=== PATIENT | female | born 1985 | race American Indian/Alaskan Native ===

== ENCOUNTER 2019-03-18 01:41 | Emergency (ER) | payer MEDICAID ==
--- NOTE | 2019-03-18 02:29 | XRay Report ---
CHEST 1 VIEW INDICATION / CLINICAL INFORMATION: Chest Pain. COMPARISON: None available. FINDINGS: SUPPORT DEVICES: None. HEART / MEDIASTINUM: No significant abnormality. LUNGS / PLEURA: No significant pulmonary or pleural abnormality. No pneumothorax. ADDITIONAL FINDINGS: No significant additional findings. IMPRESSION: 1. No acute findings. Signer Name: Bettina Kirk MD Signed: 03/18/2019 1:25 AM Workstation Name: [id number]
[2019-03-18 03:02] LABS: HCG Qualitative,Urine Negative (Negative)
[2019-03-18] MEDS ORDERED: DELTASONE PO ONE (06:02)
[2019-03-18] MEDS ORDERED: TYLENOL PO ONE (06:02)
--- NOTE | 2019-03-18 06:34 | Emergency Department Report ---
- General Chief Complaint: Upper Respiratory Infection Stated Complaint: CHEST PAIN, COUGH, DIZZY Time Seen by Provider: 03/18/19 05:30 Source: patient Mode of arrival: Ambulatory Limitations: No Limitations - History of Present Illness Initial Comments: Patient is a 28-year-old female with no past medical history who does not smoke cigarettes presents to the ED with the complaint of acute onset persistent frontal sinus pressure and headache with nasal and sinus congestion, sore throat, dry cough and diffuse body aches for the last 3 days. Patient states that she made aware of the symptoms from her place of work where people have had similar symptoms. Patient denies chest pain, shortness of breath, fever, chills, abdominal pain, dysuria, urinary frequency and urgency, dizziness, change in vision or neck pain. MD Complaint: cough, sore throat, rhinorrhea, nasal congestion, sinus pain -: Sudden, days(s) (3) Severity: severe Severity scale (0 -10): 7 Quality: sharp, aching Consistency: constant Improves With: nothing Worsens With: nothing Context: sick contacts Associated Symptoms: headache, rhinorrhea, nasal congestion, sore throat, cough. denies: fever, chills, myalgias, diaphoresis, stiff neck, chest pain, shortness of breath, abdominal pain, nausea, vomiting, diarrhea, dysuria, right sweats, weight loss, hoarseness Treatments Prior to Arrival: none - Related Data Previous Rx's Medication Instructions Recorded Last Taken Type Cyclobenzaprine [Flexeril] 10 mg PO TID PRN #15 tablet 09/03/16 Unknown Rx Amoxicillin [Trimox CAP] 500 mg PO Q8H #30 capsule 03/18/19 Unknown Rx Benzonatate [Tessalon Perles] 100 mg PO Q8HR #30 capsule 03/18/19 Unknown Rx Ibuprofen [Motrin 800 MG tab] 800 mg PO Q8HR PRN #20 tablet 03/18/19 Unknown Rx methylPREDNISolone [Medrol 4MG 4 mg PO DAILY #21 tab.ds.pk 03/18/19 Unknown Rx DOSEPAK (21 tabs)] Allergies Allergy/AdvReac Type Severity Reaction Status Date / Time No Known Allergies Allergy Unverified 09/03/16 12:50 ED Review of Systems ROS: Stated complaint: CHEST PAIN, COUGH, DIZZY Other details as noted in HPI Comment: All other systems reviewed and negative Constitutional: denies: chills, fever Eyes: denies: eye pain, eye discharge, vision change ENT: throat pain, congestion. denies: ear pain, dental pain, hearing loss Respiratory: cough. denies: shortness of breath, SOB with exertion, SOB at rest, wheezing Cardiovascular: denies: chest pain, palpitations Endocrine: no symptoms reported Gastrointestinal: denies: abdominal pain, nausea, diarrhea Genitourinary: denies: urgency, dysuria, discharge Musculoskeletal: arthralgia, myalgia. denies: back pain, joint swelling Skin: denies: rash, lesions Neurological: headache. denies: weakness, paresthesias Psychiatric: denies: anxiety, depression Hematological/Lymphatic: denies: easy bleeding, easy bruising ED Past Medical Hx - Past Medical History Previous Medical History?: Yes Hx Diabetes: Yes - Surgical History Past Surgical History?: Yes Additional Surgical History: eye right - Social History Smoking Status: Never Smoker Substance Use Type: None - Medications Home Medications: Home Medications Medication Instructions Recorded Confirmed Last Taken Type Cyclobenzaprine [Flexeril] 10 mg PO TID PRN #15 tablet 09/03/16 Unknown Rx Amoxicillin [Trimox CAP] 500 mg PO Q8H #30 capsule 03/18/19 Unknown Rx Benzonatate [Tessalon Perles] 100 mg PO Q8HR #30 capsule 03/18/19 Unknown Rx Ibuprofen [Motrin 800 MG tab] 800 mg PO Q8HR PRN #20 tablet 03/18/19 Unknown Rx methylPREDNISolone [Medrol 4MG 4 mg PO DAILY #21 tab.ds.pk 03/18/19 Unknown Rx DOSEPAK (21 tabs)] ED Physical Exam - General Limitations: No Limitations General appearance: alert, in no apparent distress - Head Head exam: Present: atraumatic, normocephalic, normal inspection - Eye Eye exam: Present: normal appearance, PERRL, EOMI. Absent: scleral icterus, conjunctival injection, nystagmus, periorbital swelling, periorbital tenderness - ENT ENT exam: Present: normal exam, mucous membranes moist, TM's normal bilaterally, normal external ear exam, other (grossly congested nasal passages; frontal sinus tenderness to palpation) - Neck Neck exam: Present: normal inspection, full ROM, lymphadenopathy. Absent: tenderness - Respiratory Respiratory exam: Present: normal lung sounds bilaterally. Absent: respiratory distress, wheezes, chest wall tenderness, accessory muscle use, decreased breath sounds - Cardiovascular Cardiovascular Exam: Present: regular rate, normal rhythm, normal heart sounds. Absent: systolic murmur, diastolic murmur, rubs, gallop - GI/Abdominal GI/Abdominal exam: Present: soft, normal bowel sounds. Absent: tenderness, guarding, hyperactive bowel sounds - Rectal Rectal exam: Present: deferred - Extremities Exam Extremities exam: Present: normal inspection, full ROM, normal capillary refill - Back Exam Back exam: Present: normal inspection, full ROM. Absent: CVA tenderness (L), muscle spasm, paraspinal tenderness - Neurological Exam Neurological exam: Present: alert, oriented X3, CN II-XII intact, normal gait, reflexes normal - Psychiatric Psychiatric exam: Present: normal affect, normal mood - Skin Skin exam: Present: warm, dry, intact, normal color. Absent: rash ED Course Vital Signs 03/18/19 01:45 Temperature 98.7 F Pulse Rate 86 Respiratory 18 Rate Blood Pressure 167/96 O2 Sat by Pulse 99 Oximetry - Reevaluation(s) Reevaluation #1: 03/18/19 06:38 Patient is alert and oriented 3 and is not in distress. Chest x-ray shows no acute cardiopulmonary abnormalities. Patient was treated for pain in the ED and discharged home on medications and advised to follow-up with her primary care physician in 5-7 days for reevaluation. Patient was advised to return to the ED immediately if symptoms get worse. ED Medical Decision Making - Radiology Data Radiology results: report reviewed, image reviewed chest x-ray: No acute cardiopulmonary abnormalities - Medical Decision Making Patient is alert and oriented 3 and is not in distress. Chest x-ray shows no acute cardiopulmonary abnormalities. Patient was treated for pain in the ED and discharged home on medications and advised to follow-up with her primary care physician in 5-7 days for reevaluation. Patient was advised to return to the ED immediately if symptoms get worse. - Differential Diagnosis acute sinusitis; acute bronchitis; acute URI, Flu like symptoms Critical care attestation.: If time is entered above; I have spent that time in minutes in the direct care of this critically ill patient, excluding procedure time. ED Disposition Clinical Impression: Acute upper respiratory infection Acute frontal sinusitis Qualifiers: Recurrence: non-recurrent Qualified Code(s): J01.10 - Acute frontal sinusitis, unspecified Acute bronchitis Qualifiers: Bronchitis organism: unspecified organism Qualified Code(s): J20.9 - Acute bronchitis, unspecified Disposition: DC- TO HOME OR SELFCARE Is pt being admited?: No Does the pt Need Aspirin: No Condition: Stable Instructions: Acute Bronchitis (ED), Upper Respiratory Infection (ED), Sinusitis (ED) Additional Instructions: Take medications with food, drink plenty of fluids and follow up with your primary care physician in 5-7 days for reevaluation. Return to the ED immediately if symptoms get worse. Prescriptions: methylPREDNISolone [Medrol 4MG DOSEPAK (21 tabs)] 4 mg PO DAILY #21 tab.ds.pk Ibuprofen [Motrin 800 MG tab] 800 mg PO Q8HR PRN #20 tablet PRN Reason: Pain Benzonatate [Tessalon Perles] 100 mg PO Q8HR #30 capsule Amoxicillin [Trimox CAP] 500 mg PO Q8H #30 capsule Referrals: [facility] [Outside] - 3-5 Days Forms: Work/School Release Form(ED) Time of Disposition: 06:32 Print Language: SOMALI
[2019-03-18 07:03] VITALS: BP 114/82
== END 2019-03-18 07:04 | disposition home or self-care (01) ==
LOC: ED 01:41
DX: J06.9 Acute upper respiratory infection, unspecified (principal); J01.10 Acute frontal sinusitis, unspecified; J20.9 Acute bronchitis, unspecified; E11.9 Type 2 diabetes mellitus without complications; Z79.1 Long term (current) use of non-steroidal anti-inflammatories (NSAID); Z79.899 Other long term (current) drug therapy
CPT/HCPCS: 71045; 81025; 99284; J7512

== ENCOUNTER 2021-03-07 01:36 | Emergency (ER) | payer MEDICAID ==
[2021-03-07] MEDS ORDERED: FAMOTIDINE 20 MG TAB PO ONE (02:57)
[2021-03-07] MEDS ORDERED: ACETAMINOPHEN 500 MG TAB PO ONE (02:57)
--- NOTE | 2021-03-07 03:00 | Event Note ---
ED Screening Note Date of service: 03/07/21 Time: 02:58 ED Screening Note: Patient is a A0 35-year-old -Central African female with a history of asthma presents to the ED with complaint of acute onset persistent right upper quadrant abdominal pain that radiates to the epigastric and periumbilical area for the last 2 days. Patient also states that she has not had any bowel movement in 4 days. Patient states that the pain is constant, crampy and persistent. Patient denies vaginal bleeding, vaginal discharge, dysuria, urinary frequency and urgency, nausea, vomiting, chest pain or shortness of breath, fever, chills, cough, diarrhea or back pain. This initial assessment/diagnostic orders/clinical plan/treatment(s) is/are subject to change based on patients health status, clinical progression and re- assessment by fellow clinical providers in the ED. Further treatment and workup at subsequent clinical providers discretion. Patient/guardian urged not to elope from the ED as their condition may be serious if not clinically assessed and managed. Initial orders include: CBC, CMP, UA, hCG quant, lipase, gallbladder ultrasound, transvaginal ultrasound and Tylenol
[2021-03-07 03:29] LABS: Basophils % (Auto) 0.5 % (0.0-1.8); Eosinophils # (Auto) 0.1 K/mm3 (0.0-0.4); Eosinophils % (Auto) 1.2 % (0.0-4.3); Lymphocytes % (Auto) 31.8 % (13.4-35.0); Monocytes # (Auto) 0.5 K/mm3 (0.0-0.8); Monocytes % (Auto) 7.7 % (0.0-7.3)
[2021-03-07 03:46] LABS: Bilirubin,Urine NEG (Negative); Blood,Urine NEG (Negative); Color,Urine Yellow (Yellow); Mucus,Urine FEW /HPF; Protein,Urine <15 mg/dL mg/dL (Negative); RBC,Urine < 1.0 /HPF (0.0-6.0); Urobilinogen,Urine < 2.0 mg/dL (<2.0)
[2021-03-07 04:15] LABS: Hematocrit 35.2 % (30.3-42.9); Mean Corpuscular HGB Conc 35 % (30-34); Mean Corpuscular Volume 96 fl (79-97); Platelet Count 233 K/mm3 (140-440); Red Blood Count 3.67 M/mm3 (3.65-5.03); Red Cell Distribution Width 13.3 % (13.2-15.2)
--- NOTE | 2021-03-07 04:20 | Ultrasound Report ---
OB ultrasound INDICATION: Right upper quadrant pain FINDINGS: There is a live intrauterine . Gestational sac measures 37.1 mm measuring 9.0 days . [place]-rump length measures 15.6 mm measuring 8 weeks 0 days. Yolk sac pole appear normal. No free fluid. Small subchorionic bleed is suggested. heart rate 159. Ovaries appear normal. Uteru s measures 13.5 x 6.1 x 9.3 cm. IMPRESSION: 1. Live intrauterine . 2. Small subchorionic bleed. Signer Name: Handy Silvestre MD Signed: 03/07/2021 4:16 AM Workstation Name: [id number]
--- NOTE | 2021-03-07 04:21 | Ultrasound Report ---
Abdominal ultrasound INDICATION: Right upper quadrant pain FINDINGS: Aorta and IVC appear normal. Pancreas appears normal. No gallstones or gallbladder wall thi ckening. Common bile duct measures 2 mm. Right kidney appears normal. Liver appears normal. IMPRESSION: No acute findings. Signer Name: Handy Silvestre MD Signed: 03/07/2021 4:16 AM Workstation Name: [id number]
[2021-03-07 04:43] LABS: Alanine Aminotransferase 13 units/L (7-56); Albumin 4.1 g/dL (3.9-5); Blood Urea Nitrogen 4 mg/dL (7-17); Calcium 9.1 mg/dL (8.4-10.2); Hemolysis Index 4
[2021-03-07 04:51] LABS: BUN/Creatinine Ratio 10
--- NOTE | 2021-03-07 07:20 | Emergency Department Report ---
ED Abdominal Pain HPI - General Chief Complaint: Abdominal Pain Stated Complaint: 8WEEKS PREG, PAIN NEAR NAVAL TO RIGHT SIDE Time Seen by Provider: 03/07/21 06:54 Source: patient Mode of arrival: Ambulatory Limitations: No Limitations - History of Present Illness Initial Comments: Patient is a A0 35-year-old -[place] female with a history of asthma presents to the ED with complaint of acute onset persistent right upper quadrant abdominal pain that radiates to the epigastric and periumbilical area for the last 2 days. Patient also states that she has not had any bowel movement in 4 days. Patient states that the pain is constant, crampy and persistent. Patient denies vaginal bleeding, vaginal discharge, dysuria, urinary frequency and urgency, vomiting, chest pain or shortness of breath, fever, chills, cough, diarrhea or back pain. Has nausea. Nothing aggravate or alleviate symptoms. Last menstrual period January 08, 2021. Currently not in OB care has an appointment sometime this week. Currently being treated for bacterial vaginosis with MetroGel suppositories last treatment is today. MD Complaint: abdominal pain Location: LUQ Migration to: periumbilical Severity scale (0 -10): 4 - Related Data Previous Rx's Medication Instructions Recorded Last Taken Type Cyclobenzaprine [Flexeril] 10 mg PO TID PRN #15 tablet 09/03/16 Unknown Rx Amoxicillin [Trimox CAP] 500 mg PO Q8H #30 capsule 03/18/19 Unknown Rx Benzonatate [Tessalon Perles] 100 mg PO Q8HR #30 capsule 03/18/19 Unknown Rx Ibuprofen [Motrin 800 MG tab] 800 mg PO Q8HR PRN #20 tablet 03/18/19 Unknown Rx methylPREDNISolone [Medrol 4MG 4 mg PO DAILY #21 tab.ds.pk 03/18/19 Unknown Rx DOSEPAK (21 tabs)] cephALEXin [Keflex] 500 mg PO Q6HR #40 capsule 12/06/19 Unknown Rx hydrOXYzine HCL [Atarax] 25 mg PO Q6HR PRN #20 tablet 12/06/19 Unknown Rx predniSONE [Deltasone] 20 mg PO QDAY #5 tab 12/06/19 Unknown Rx polyethylene glycoL 3350 [Miralax 17 gm PO QDAY 4 Days #1 box 03/07/21 Unknown Rx 3350] Allergies Allergy/AdvReac Type Severity Reaction Status Date / Time No Known Allergies Allergy Unverified 09/03/16 12:50 ED Review of Systems ROS: Stated complaint: 8WEEKS PREG, PAIN NEAR NAVAL TO RIGHT SIDE Other details as noted in HPI ED Past Medical Hx - Past Medical History Previous Medical History?: No Hx Diabetes: Yes - Surgical History Past Surgical History?: No Additional Surgical History: eye right - Social History Smoking Status: Never Smoker - Medications Home Medications: Home Medications Medication Instructions Recorded Confirmed Last Taken Type Cyclobenzaprine [Flexeril] 10 mg PO TID PRN #15 tablet 09/03/16 Unknown Rx Amoxicillin [Trimox CAP] 500 mg PO Q8H #30 capsule 03/18/19 Unknown Rx Benzonatate [Tessalon Perles] 100 mg PO Q8HR #30 capsule 03/18/19 Unknown Rx Ibuprofen [Motrin 800 MG tab] 800 mg PO Q8HR PRN #20 tablet 03/18/19 Unknown Rx methylPREDNISolone [Medrol 4MG 4 mg PO DAILY #21 tab.ds.pk 03/18/19 Unknown Rx DOSEPAK (21 tabs)] cephALEXin [Keflex] 500 mg PO Q6HR #40 capsule 12/06/19 Unknown Rx hydrOXYzine HCL [Atarax] 25 mg PO Q6HR PRN #20 tablet 12/06/19 Unknown Rx predniSONE [Deltasone] 20 mg PO QDAY #5 tab 12/06/19 Unknown Rx polyethylene glycoL 3350 [Miralax 17 gm PO QDAY 4 Days #1 box 03/07/21 Unknown Rx 3350] ED Physical Exam - General Limitations: No Limitations General appearance: alert, in no apparent distress - Head Head exam: Present: atraumatic, normocephalic - Eye Eye exam: Present: normal appearance - ENT ENT exam: Present: mucous membranes moist - Neck Neck exam: Present: normal inspection - Respiratory Respiratory exam: Present: normal lung sounds bilaterally. Absent: respiratory distress - Cardiovascular Cardiovascular Exam: Present: regular rate, normal rhythm. Absent: systolic murmur, diastolic murmur, rubs, gallop - GI/Abdominal GI/Abdominal exam: Present: soft, normal bowel sounds. Absent: distended - Extremities Exam Extremities exam: Present: normal inspection, full ROM - Back Exam Back exam: Present: normal inspection, full ROM - Neurological Exam Neurological exam: Present: alert, oriented X3, normal gait - Psychiatric Psychiatric exam: Present: normal affect, normal mood - Skin Skin exam: Present: warm, dry, intact, normal color. Absent: rash ED Course Vital Signs 03/07/21 02:50 Temperature 98.2 F Pulse Rate 79 Respiratory 18 Rate Blood Pressure 124/72 O2 Sat by Pulse 100 Oximetry ED Medical Decision Making - Lab Data Result diagrams: 03/07/21 03:06 03/07/21 03:06 - Radiology Data Radiology results: report reviewed [facility] [address] [place] [address] Ultrasound Report Signed Patient: YANNI VIVAR MR#: [id number] : 1985 Acct:[id number] Age/Sex: 35 / F ADM Date: 03/07/21 Loc: ED Attending Dr: Ordering Physician: GARRY FAIR Date of Service: 03/07/21 Procedure(s): US OB <= 14 weeks fetus Accession Number(s): [id number] cc: GARRY FAIR OB ultrasound INDICATION: Right upper quadrant pain FINDINGS: There is a live intrauterine . Gestational sac measures 37.1 mm measuring 9.0 days. [place]-rump length measures 15.6 mm measuring 8 weeks 0 days. Yolk sac pole appear normal. No free fluid. Small subchorionic bleed is suggested. heart rate 159. Ovaries appear normal. Uterus measures 13.5 x 6.1 x 9.3 cm. IMPRESSION: 1. Live intrauterine . 2. Small subchorionic bleed. Signer Name: Handy Knapp MD Signed: 03/07/2021 4:16 AM Workstation Name: [id number] Transcribed By: ROLY Dictated By: JUN KNAPP MD Electronically Authenticated By: JUN KNAPP MD Signed Date/Time: 03/07/21415 DD/ 4 TD/TT: Print Cancel - Medical Decision Making Patient is a A0 35-year-old -[place] female with a history of asthma presents to the ED with complaint of acute onset persistent right upper quadrant abdominal pain that radiates to the epigastric and periumbilical area for the last 2 days. Patient also states that she has not had any bowel movement in 4 days. Patient states that the pain is constant, crampy and persistent. Patient denies vaginal bleeding, vaginal discharge, dysuria, urinary frequency and urgency, vomiting, chest pain or shortness of breath, fever, chills, cough, diarrhea or back pain. Has nausea. Nothing aggravate or alleviate symptoms. Last menstrual period January 08, 2021. Currently not in OB care has an appointment sometime this week. Currently being treated for bacterial vaginosis with MetroGel suppositories last treatment is today. Labs are stable ultrasound shows a intrauterine gestation of 8 weeks 0 days with a Small subchorionic bleed. Critical care attestation.: If time is entered above; I have spent that time in minutes in the direct care of this critically ill patient, excluding procedure time. ED Disposition Clinical Impression: Constipation Qualifiers: Constipation type: unspecified constipation type Qualified Code(s): K59.00 - Constipation, unspecified Qualifiers: Weeks of gestation: less than 8 weeks Qualified Code(s): Z3A.01 - Less than 8 weeks gestation of Subchorionic hematoma in first trimester Qualifiers: Fetus number: single or unspecified fetus Qualified Code(s): O41.8X10 - Other specified disorders of amniotic fluid and membranes, first trimester, not applicable or unspecified; O46.8X1 - Other antepartum hemorrhage, first trimester Disposition: DC-01 TO HOME OR SELFCARE Is pt being admited?: No Does the pt Need Aspirin: No Condition: Stable Instructions: Abdominal Pain (ED), Constipation, Adult, [id number], Subchorionic Hematoma Additional Instructions: Labs are stable ultrasound shows a 8-week fetus and a small subacromion hematoma. I would like for you to take the MiraLAX once a day for 4 days to see if we can move your bowels. Then you can take it periodically as needed. Is very important for you to follow-up with a [employer] this week. Continue to increase your fluid intake. Tylenol for any pain. Start taking your vitamins. Prescriptions: polyethylene glycoL 3350 [Miralax 3350] 17 gm PO QDAY 4 Days #1 box Referrals: [facility] [Outside] - 3-5 Days Forms: Work/School Release Form(ED)
[2021-03-07] MEDS ORDERED: ACETAMINOPHEN 325 MG TAB PO ONE (07:36)
[2021-03-07 07:44] VITALS: BP 112/77
== END 2021-03-07 07:50 | disposition home or self-care (01) ==
LOC: ED 01:36
DX: O26.891 Other specified pregnancy related conditions, first trimester (principal); K59.00 Constipation, unspecified; O20.8 Other hemorrhage in early pregnancy; E11.9 Type 2 diabetes mellitus without complications; Z98.890 Other specified postprocedural states; Z79.899 Other long term (current) drug therapy; Z3A.08 8 weeks gestation of pregnancy
CPT/HCPCS: 36415; 76705; 76801; 80053; 81001; 83690; 84702; 85025; 99284

== ENCOUNTER 2021-04-11 03:42 | Emergency (ER) | payer MEDICAID | END 2021-04-11 05:31 | disposition left against medical advice (07) | LOC: ED 03:42 | DX: R05 Cough (principal); Z53.21 Procedure and treatment not carried out due to patient leaving prior to being seen by health care provider ==

== ENCOUNTER 2021-07-12 08:56 | Emergency (ER) | payer MEDICAID ==
[2021-07-12] MEDS ORDERED: SODIUM CHLORIDE 0.9% 1000 ML 1,000 ML IV ONE (09:46)
--- NOTE | 2021-07-12 09:51 | Emergency Department Report ---
ED General Adult HPI - General Chief complaint: Vaginal Bleeding Stated complaint: VAGINAL BLEEDING Time Seen by Provider: 07/12/21 09:46 Source: patient Mode of arrival: Stretcher Limitations: No Limitations - History of Present Illness Initial comments: Patient is 35 years old female 5 para 3 with 1 at 13weeks gestation. Patient presented to the ER via EMS from home for evaluation of sudden onset of lower abdominal cramping and vaginal bleeding started this morning. Patient denied any injury or trauma. Patient denied any nausea or vomiting. No fever or chills. - Related Data Allergies Allergy/AdvReac Type Severity Reaction Status Date / Time No Known Allergies Allergy Verified 07/12/21 09:40 ED Review of Systems ROS: Stated complaint: VAGINAL BLEEDING Other details as noted in HPI Comment: All other systems reviewed and negative Constitutional: denies: chills, fever Cardiovascular: denies: chest pain, palpitations Gastrointestinal: abdominal pain. denies: nausea, vomiting, diarrhea, constipation, hematemesis Genitourinary: denies: urgency, dysuria Musculoskeletal: denies: back pain Neurological: denies: headache, weakness, numbness, paresthesias, confusion, abnormal gait ED Past Medical Hx - Past Medical History Previous Medical History?: Yes Hx Diabetes: Yes - Surgical History Past Surgical History?: Yes Additional Surgical History: eye right - Social History Smoking Status: Current Every Day Smoker Substance Use Type: None ED Physical Exam - General Limitations: No Limitations General appearance: alert, in no apparent distress - Head Head exam: Present: atraumatic, normocephalic, normal inspection - Eye Eye exam: Present: normal appearance, PERRL - ENT ENT exam: Present: normal exam, normal orophraynx, mucous membranes moist - Neck Neck exam: Present: normal inspection, full ROM. Absent: tenderness, meningismus - Respiratory Respiratory exam: Present: normal lung sounds bilaterally - Cardiovascular Cardiovascular Exam: Present: regular rate, normal rhythm, normal heart sounds - GI/Abdominal GI/Abdominal exam: Present: soft, normal bowel sounds. Absent: distended, tenderness, guarding, rebound, rigid, organomegaly, mass, bruit, pulsatile mass, hernia - Extremities Exam Extremities exam: Present: normal inspection, full ROM, normal capillary refill. Absent: tenderness - Back Exam Back exam: Present: normal inspection, full ROM. Absent: CVA tenderness (R), CVA tenderness (L) - Neurological Exam Neurological exam: Present: alert, oriented X3, CN II-XII intact, normal gait, reflexes normal. Absent: motor sensory deficit - Psychiatric Psychiatric exam: Present: normal mood - Skin Skin exam: Present: warm, intact, normal color ED Course Vital Signs 07/12/21 07/12/21 07/12/21 09:21 09:48 11:43 Pulse Rate 88 Respiratory 18 Rate Blood Pressure 138/83 120/73 [Left] O2 Sat by Pulse 98 Oximetry 07/12/21 12:46 Pulse Rate 84 Respiratory Rate Blood Pressure 117/73 [Left] O2 Sat by Pulse Oximetry ED Medical Decision Making - Lab Data Result diagrams: 07/12/21 09:53 07/12/21 09:53 - Radiology Data Radiology results: report reviewed - Medical Decision Making Patient is 35 years old female 5 para 3 with 1 at 13weeks gestation. Patient presented to the ER via EMS from home for evaluation of sudden onset of lower abdominal cramping and vaginal bleeding started this morning. Patient denied any injury or trauma. Patient denied any nausea or vomiting. No fever or chills. Patient remained stable in the ER. Patient passed a big clot with the tissues. Patient stated the bleeding stopped now. Labs reviewed and is unremarkable. ultrasound showed no intrauterine or yolk sac. Patient obviously have miscarriage. Patient advised to follow-up with her OB doctor in the next 2 to 3 days and to return to the ER if she develop any new symptoms. Critical care attestation.: If time is entered above; I have spent that time in minutes in the direct care of this critically ill patient, excluding procedure time. ED Disposition Clinical Impression: Abnormal uterine bleeding, Miscarriage, threatened, early Disposition: 01 HOME / SELF CARE / HOMELESS Is pt being admited?: No Condition: Stable Instructions: Threatened Miscarriage, Vaginal Bleeding During , First Trimester Referrals: PRIMARY CARE, [Primary Care Provider] - 3-5 Days Forms: Work/School Release Form(ED)
[2021-07-12 10:14] LABS: Basophils % (Auto) 0.5 % (0.0-1.8); Eosinophils # (Auto) 0.1 K/mm3 (0.0-0.4); Eosinophils % (Auto) 1.8 % (0.0-4.3); Hematocrit 33.8 % (30.3-42.9); Hemoglobin 12.1 gm/dl (10.1-14.3); Lymphocytes # (Auto) 1.3 K/mm3 (1.2-5.4); Lymphocytes % (Auto) 29.3 % (13.4-35.0); Mean Corpuscular HGB Conc 36 % (30-34); Mean Corpuscular Volume 92 fl (79-97); Monocytes # (Auto) 0.3 K/mm3 (0.0-0.8); Monocytes % (Auto) 6.1 % (0.0-7.3); Platelet Count 217 K/mm3 (140-440); Red Blood Count 3.69 M/mm3 (3.65-5.03); Red Cell Distribution Width 13.3 % (13.2-15.2)
[2021-07-12 10:23] LABS: INR 0.88 (0.87-1.13)
[2021-07-12 10:24] LABS: Partial Thromboplastin Time 28.9 Sec. (24.2-36.6)
[2021-07-12 10:32] LABS: Blood Urea Nitrogen 4 mg/dL (7-17); Calcium 8.5 mg/dL (8.4-10.2); Hemolysis Index 4
[2021-07-12 11:07] LABS: BUN/Creatinine Ratio 10
[2021-07-12 11:57] LABS: Bilirubin,Urine NEG (Negative); Blood,Urine MOD (Negative); Color,Urine Red (Yellow); Urobilinogen,Urine < 2.0 mg/dL (<2.0)
[2021-07-12 11:58] LABS: RBC,Urine > 182.0 /HPF (0.0-6.0)
--- NOTE | 2021-07-12 12:35 | Ultrasound Report ---
US OB transvaginal, US OB <= 14 weeks fetus INDICATION / CLINICAL INFORMATION: ABDOMINAL PAIN; vag bleeding. COMPARISON: None. FINDINGS: Transabdominal and transvaginal imaging was performed. There is a 1.5 cm anterior uterine fibroid. Endometrial echo complex measures 18 mm in the body and 3 1 mm more inferiorly. Within the lower uterine segment near the cervix there is a somewhat ovoid ane choic collection which could be a gestational sac. No contents are identified. There is a 2.6 cm left ovarian cyst. Ovaries are otherwise unremarkable. No free fluid is seen. No adnexal lesions are identified. IMPRESSION: 1. 1.9 x 1.4 x 0.6 cm anechoic focus in the lower uterine segment/cervix could be a gestational sac; however, no yolk sac or pole is seen. This could be due to miscarriage in progress. Correlation with serial beta hCG levels is recommended. Signer Name: Chace Martínez MD Signed: 07/12/2021 11:28 AM Workstation Name: [id number]
[2021-07-12 12:46] VITALS: BP 117/73
== END 2021-07-12 14:07 | disposition home or self-care (01) ==
LOC: ED 08:56
DX: O20.0 Threatened abortion (principal); E11.9 Type 2 diabetes mellitus without complications; F17.200 Nicotine dependence, unspecified, uncomplicated; Z3A.13 13 weeks gestation of pregnancy; Z98.890 Other specified postprocedural states
CPT/HCPCS: 36415; 76801; 76817; 80048; 81001; 84702; 85025; 85610; 85730; 87086; 96360; 96361; 99284

== ENCOUNTER 2022-04-16 10:12 | Emergency (ER) | payer MEDICAID ==
[2022-04-16] MEDS ORDERED: PANTOPRAZOLE 40 MG TAB PO ONE (12:14)
[2022-04-16] MEDS ORDERED: METOCLOPRAMIDE 10 MG TAB PO ONE (12:14)
[2022-04-16] MEDS ORDERED: ACETAMINOPHEN 325 MG TAB PO ONE (12:14)
--- NOTE | 2022-04-16 12:15 | Emergency Department Report ---
ED General Adult HPI - General Chief complaint: Medical Clearance Stated complaint: BLOOD PRESSURE HIGH/MIGRAINES Time Seen by Provider: 04/16/22 11:16 Source: patient, RN notes reviewed, old records reviewed Mode of arrival: Ambulatory Limitations: No Limitations - History of Present Illness Initial comments: The patient was evaluated in the emergency department for symptoms described in the history of present illness. He/she was evaluated in the context of the global COVID-19 pandemic, which necessitated consideration that the patient might be at risk for infection with the virus that causes COVID-19. Institutional protocols and algorithms that pertain to the evaluation of patients at risk for COVID-19 are in a state of rapid change based on information released by regulatory bodies including the CDC and federal and state organizations. These policies and algorithms were followed during the patient's care in the emergency department. Please note that these policies, procedures and recommendations changed on a rapid basis. This is a 36-year-old female who states that she is not , who presents to the department today with a primary complaint of requesting HCTZ refill. She reports being off of this medication for 1 month. She takes 25 mg once daily. Review of systems is positive for nonspecific central chest wall pain, present for 2 weeks, which does not radiate to the back, arms or neck, and without associated nausea, vomiting, diaphoresis, travel, surgery, immobilization, DVT and pulmonary embolism risk factors. Also endorses nonspecific frontal migraine headache, present for 2 weeks, which is not sudden or thunderclap in nature, not maximal in intensity, not the worst headache of her life. She reports that she has follow-up with an outpatient primary care doctor next week, on April 20 -: week(s) Location: head, chest Severity scale (0 -10): 9 - Related Data Previous Rx's Medication Instructions Recorded Last Taken Type Acetaminophen [Non-Aspirin Extra 500 mg PO Q6HR PRN #30 tablet 04/16/22 Unknown Rx Strength] Hydrochlorothiazide 25 mg PO DAILY #30 tab 04/16/22 Unknown Rx Ibuprofen [Motrin] 600 mg PO Q8H PRN #30 tablet 04/16/22 Unknown Rx Allergies Allergy/AdvReac Type Severity Reaction Status Date / Time No Known Allergies Allergy Verified 07/12/21 09:40 ED Review of Systems ROS: Stated complaint: BLOOD PRESSURE HIGH/MIGRAINES Other details as noted in HPI Comment: All other systems reviewed and negative Cardiovascular: chest pain Neurological: headache ED Past Medical Hx - Past Medical History Previous Medical History?: Yes Hx Diabetes: Yes - Surgical History Past Surgical History?: Yes Additional Surgical History: eye right - Social History Smoking Status: Current Every Day Smoker Substance Use Type: None - Medications Home Medications: Home Medications Medication Instructions Recorded Confirmed Last Taken Type Acetaminophen [Non-Aspirin Extra 500 mg PO Q6HR PRN #30 tablet 04/16/22 Unknown Rx Strength] Hydrochlorothiazide 25 mg PO DAILY #30 tab 04/16/22 Unknown Rx Ibuprofen [Motrin] 600 mg PO Q8H PRN #30 tablet 04/16/22 Unknown Rx ED Physical Exam - General Limitations: No Limitations General appearance: alert, in no apparent distress - Head Head exam: Present: atraumatic, normocephalic - Eye Eye exam: Present: normal appearance, EOMI. Absent: nystagmus - ENT ENT exam: Present: normal exam, normal orophraynx, mucous membranes moist, normal external ear exam - Neck Neck exam: Present: normal inspection, full ROM. Absent: tenderness, meningismus - Respiratory Respiratory exam: Present: normal lung sounds bilaterally. Absent: respiratory distress, wheezes, rales, rhonchi, stridor, decreased breath sounds - Cardiovascular Cardiovascular Exam: Present: regular rate, normal rhythm, normal heart sounds. Absent: bradycardia, tachycardia, irregular rhythm, systolic murmur, diastolic murmur, rubs, gallop - GI/Abdominal GI/Abdominal exam: Present: soft. Absent: distended, tenderness, guarding, rebound, rigid, pulsatile mass - Extremities Exam Extremities exam: Present: normal inspection, full ROM, normal capillary refill, other (2+ pulses noted in the bilateral upper and lower extremities. There is no palpable cord. negative Homans sign. Muscular compartments are soft. The pelvis is stable.). Absent: pedal edema, calf tenderness - Back Exam Back exam: Present: normal inspection. Absent: tenderness, CVA tenderness (R), CVA tenderness (L), paraspinal tenderness, vertebral tenderness - Neurological Exam Neurological exam: Present: alert, oriented X3, normal gait, other (No facial droop. Tongue midline. Extraocular movements intact bilaterally. Facial sensation intact to light touch in V1, V2, V3 distribution bilaterally. 5 and a 5 strength in 4 extremities. Sensation intact to light touch in 4 extremities.). Absent: motor sensory deficit - Psychiatric Psychiatric exam: Present: normal affect, normal mood - Skin Skin exam: Present: warm, dry, intact, normal color. Absent: rash ED Course Vital Signs 04/16/22 04/16/22 04/16/22 10:27 11:15 12:55 Temperature 98.3 F 98.5 F Pulse Rate 70 75 67 Respiratory 16 14 13 Rate Blood Pressure 190/108 147/79 153/100 [Right] O2 Sat by Pulse 100 99 99 Oximetry - Reevaluation(s) Reevaluation #1: 04/16/22 14:49 Differential diagnosis, include not limited to: GERD, gastritis, hiatal hernia, costochondritis, nonspecific chest pain, migraine headache, tension headache, cluster headache, medication refill Assessment and plan: 36-year-old female, who is not currently tachycardic, tachypneic or hypoxic, who denies DVT and pulmonary embolism risk factors, who is low risk by Wells criteria for pulmonary embolism, PERC negative, troponin negative x1, symptoms present for 2 weeks. Acute myocardial infarction is ruled out Patient is PERC negative. There is no personal or family history of CAD/OK there is no personal or family history of DVT/PE Patient has equal pulses in the upper and lower extremities, no pulsatile abdominal mass, and an unremarkable x-ray of the chest, therefore, aortic disease is very unlikely. Patient at low risk for major adverse cardiac event as per heart score. Laboratory studies nonactionable. Patient observed in this department for hours without clinical decompensation. Supportive care for nonspecific chest pain and headache, refill HCTZ for 1 month. May follow-up with outpatient primary care doctor. Patient in no acute distress ED Medical Decision Making - Lab Data Result diagrams: 04/16/22 12:20 04/16/22 12:20 Vital Signs 04/16/22 04/16/22 04/16/22 10:27 11:15 12:55 Temperature 98.3 F 98.5 F Pulse Rate 70 75 67 Respiratory 16 14 13 Rate Blood Pressure 190/108 147/79 153/100 [Right] O2 Sat by Pulse 100 99 99 Oximetry Lab Results 04/16/22 04/16/22 04/16/22 Range/Units 12:20 12:20 12:20 WBC 4.5 (4.5-11.0) K/mm3 RBC 4.32 (3.65-5.03) M/mm3 Hgb 13.7 (10.1-14.3) gm/dl Hct 41.2 (30.3-42.9) % MCV 95 (79-97) fl MCH 32 (28-32) pg MCHC 33 (30-34) % RDW 13.8 (13.2-15.2) % Plt Count 284 (140-440) K/mm3 PT 13.3 (12.2-14.9) Sec. INR 0.92 (0.87-1.13) Sodium 136 L (137-145) mmol/L Potassium 4.1 (3.6-5.0) mmol/L Chloride 101.6 (98-107) mmol/L Carbon Dioxide 27 (22-30) mmol/L Anion Gap 12 mmol/L BUN 6 L (7-17) mg/dL Creatinine 0.5 L (0.6-1.2) mg/dL Estimated GFR > 60 ml/min BUN/Creatinine Ratio 12 % Glucose 90 (65-100) mg/dL Calcium 9.4 (8.4-10.2) mg/dL Troponin T < 0.010 (0.00-0.029) ng/mL HCG, Quant (0-4) mIU/mL 04/16/22 Range/Units 12:20 WBC (4.5-11.0) K/mm3 RBC (3.65-5.03) M/mm3 Hgb (10.1-14.3) gm/dl Hct (30.3-42.9) % MCV (79-97) fl MCH (28-32) pg MCHC (30-34) % RDW (13.2-15.2) % Plt Count (140-440) K/mm3 PT (12.2-14.9) Sec. INR (0.87-1.13) Sodium (137-145) mmol/L Potassium (3.6-5.0) mmol/L Chloride (98-107) mmol/L Carbon Dioxide (22-30) mmol/L Anion Gap mmol/L BUN (7-17) mg/dL Creatinine (0.6-1.2) mg/dL Estimated GFR ml/min BUN/Creatinine Ratio % Glucose (65-100) mg/dL Calcium (8.4-10.2) mg/dL Troponin T (0.00-0.029) ng/mL HCG, Quant < 2 (0-4) mIU/mL - EKG Data -: EKG Interpreted by Me EKG shows normal: sinus rhythm Rate: normal - EKG Data 04/16/22 14:47 There is no prior EKG available for comparison. The EKG is interpreted at 12: 48. Sinus rhythm, rate 69 bpm. Left axis deviation, left anterior fascicular block, high left ventricular voltage, QTC 4 5 2 ms. This is an abnormal EKG. This is not a STEMI. - Radiology Data Radiology results: pending, report reviewed, image reviewed interpreted by me: 2 view x-ray of the chest, interpreted myself, shows clear lungs, no infiltrate, no pneumothorax CHEST 2 VIEWS INDICATION / CLINICAL INFORMATION: chest pain. FINDINGS: SUPPORT DEVICES: None. HEART / MEDIASTINUM: No significant abnormality. LUNGS / PLEURA: No significant pulmonary or pleural abnormality. No pneumothorax. ADDITIONAL FINDINGS: No significant additional findings. IMPRESSION: 1. No acute findings. Signer Name: Jordy Roblero MD Signed: 04/16/2022 1:44 PM Workstation Name: [facility] Critical care attestation.: If time is entered above; I have spent that time in minutes in the direct care of this critically ill patient, excluding procedure time. ED Disposition Clinical Impression: Medication refill, Nonspecific chest pain, Elevated blood pressure reading, Headache Disposition: 01 HOME / SELF CARE / HOMELESS Is pt being admited?: No Does the pt Need Aspirin: No Condition: Good Instructions: Nonspecific Chest Pain, Adult Additional Instructions: Please avoid consumption of alcohol, tobacco and smoke products. Take the prescribed pain medications as needed and directed, and avoid consumption of heavy and spicy foods. Please take blood pressure medication as directed. Please follow-up with a primary care doctor within the next 2 weeks. Please return to the emergency room right away with new pain, worsened pain, migration of pain, projectile vomiting, change in mental status, confusion, inability tolerate liquid feeds, new, worsened or different symptoms not present on the initial emergency room evaluation Prescriptions: Hydrochlorothiazide 25 mg PO DAILY #30 tab Ibuprofen [Motrin] 600 mg PO Q8H PRN #30 tablet PRN Reason: Pain Acetaminophen [Non-Aspirin Extra Strength] 500 mg PO Q6HR PRN #30 tablet PRN Reason: Pain , Severe (7-10) Referrals: ANKUR CAMPOS MD [Primary Care Provider] - 3-5 Days Forms: Work/School Release Form(ED) Heart Score - HEART Score History: Slightly suspicious EKG: Non-specific Age: < 45 Risk factors: 1-2 risk factors Troponin: < normal limit HEART Score: 2 - EKG Read Time Time EKG Completed: 12:48 EKG Read Time: 12:48 - Critical Actions Critical Actions: 0-3 pts:0.9-1.7%risk of adverse cardiac event.Candidate for discharge
[2022-04-16 12:49] LABS: Hematocrit 41.2 % (30.3-42.9); Hemoglobin 13.7 gm/dl (10.1-14.3); Mean Corpuscular HGB Conc 33 % (30-34); Mean Corpuscular Volume 95 fl (79-97); Platelet Count 284 K/mm3 (140-440); Red Blood Count 4.32 M/mm3 (3.65-5.03); Red Cell Distribution Width 13.8 % (13.2-15.2)
[2022-04-16 12:56] VITALS: BP 153/100
[2022-04-16 12:59] LABS: INR 0.92 (0.87-1.13)
[2022-04-16 13:45] LABS: Blood Urea Nitrogen 6 mg/dL (7-17); Calcium 9.4 mg/dL (8.4-10.2); Hemolysis Index 14
[2022-04-16 13:47] LABS: BUN/Creatinine Ratio 12
--- NOTE | 2022-04-16 14:48 | XRay Report ---
CHEST 2 VIEWS INDICATION / CLINICAL INFORMATION: chest pain. FINDINGS: SUPPORT DEVICES: None. HEART / MEDIASTINUM: No significant abnormality. LUNGS / PLEURA: No significant pulmonary or pleural abnormality. No pneumothorax. ADDITIONAL FINDINGS: No significant additional findings. IMPRESSION: 1. No acute findings. Signer Name: Jordy Roblero MD Signed: 04/16/2022 2:44 PM Workstation Name: [id number]
--- NOTE | 2022-04-18 10:04 | Electrocardiograph Report ---
[facility] Test Date: 2022-04-16 Test Time: 12:48:35 Pat Name: YANNI VIVAR Department: Room: Gender: F News Editor: ALLA : 1985 Requested By: AUTUMN JUAN Order Number: [id number] Reading MD: Myke Guevara Measurements Intervals [place] Rate: 69 P: 42 MD: 161 QRS: -10 QRSD: 89 T: 6 QT: 420 QTc: 452 Interpretive Statements Sinus rhythm Probable left atrial enlargement Left ventricular hypertrophy No previous ECG available for comparison Electronically Signed On 04-18-2022 10:03:30 EDT by Myke Guevara
== END 2022-04-16 15:05 | disposition home or self-care (01) ==
LOC: ED 10:12
DX: R07.89 Other chest pain (principal); R03.0 Elevated blood-pressure reading, without diagnosis of hypertension; R51.9 Headache, unspecified; Z76.0 Encounter for issue of repeat prescription; E11.9 Type 2 diabetes mellitus without complications; F17.200 Nicotine dependence, unspecified, uncomplicated; Z98.890 Other specified postprocedural states; Z79.899 Other long term (current) drug therapy
CPT/HCPCS: 36415; 71046; 80048; 84484; 84702; 85027; 85610; 93005; 99284